=== PATIENT | female | born 1990 | race Caucasian/White ===

== ENCOUNTER 2017-06-21 17:54 | Emergency (ER) | payer MEDICAID ==
[~2017-06-21] VITALS: Ht 157.5 cm; Wt 87.5 kg
[~2017-06-21 17:54] MED LIST: AMOX1TAB64 PO; DOXY100T PO; HYDR2TAB29 PO; IBUP200T48 PO
[2017-06-21 17:56] VITALS: BP 114/74
== END 2017-06-21 18:33 | disposition home or self-care (01) ==
LOC: ED 18:27
DX: L03.012 Cellulitis of left finger (principal); G89.11 Acute pain due to trauma
CPT/HCPCS: 11740

== ENCOUNTER 2018-01-08 00:12 | Emergency (ER) | payer MEDICAID ==
[~2018-01-08] VITALS: Ht 170.2 cm; Wt 91.0 kg
[~2018-01-08 00:12] MED LIST changes: -IBUP200T48 PO; +IBUP200T49 PO
[2018-01-08] MEDS ORDERED: IBUPROFEN 200 MG TABLET ONE (00:45)
[2018-01-08] MEDS ORDERED: IBUPROFEN 200 MG TABLET PO ONE (01:00)
[2018-01-08 01:39] VITALS: BP 134/74
== END 2018-01-08 01:41 | disposition home or self-care (01) ==
LOC: ED 01:21
DX: K04.7 Periapical abscess without sinus (principal); F17.210 Nicotine dependence, cigarettes, uncomplicated
CPT/HCPCS: 99283

== ENCOUNTER 2018-11-14 13:07 | Emergency (ER) | payer MEDICAID ==
[~2018-11-14] VITALS: Ht 170.2 cm; Wt 79.5 kg
[2018-11-14 14:00] LABS: ALBUMIN 4.1 g/dL (3.4-5.0); ANION GAP 8 mmol/L (5-15); CALCIUM 9.1 mg/dL (8.5-10.1); CHLORIDE 108 mmol/L (98-107); CREATININE 0.71 mg/dL (0.55-1.02)
--- NOTE | 2018-11-14 15:12 | NUR ---
DR LIN AT BEDSIDE TO EVAL PT
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
[2018-11-14 16:02] VITALS: BP 111/63
[2018-11-14 16:05] LABS: BASOPHILS # (AUTO) 0.03 x10^3/uL (0-0.1); BASOPHILS % (AUTO) 0 % (0-1); EOSINOPHILS # (AUTO) 0.32 x10^3/uL (0-0.4); EOSINOPHILS % (AUTO) 3 % (1-7); LYMPHOCYTES # (AUTO) 2.88 x10^3/uL (1-3.4); LYMPHOCYTES % (AUTO) 29 % (22-44); MD NO; MEAN CORPUSCULAR HEMOGLOBIN 28.9 pg (27.0-34.8); MEAN CORPUSCULAR HGB CONC 33.4 g/dL (32.4-35.8); MEAN CORPUSCULAR VOLUME 86.6 fL (80-100); MEAN PLATELET VOLUME 9.9 fL (7.4-10.4); MONOCYTES # (AUTO) 0.22 x10^3/uL (0.2-0.8); MONOCYTES % (AUTO) 2 % (2-9); NEUTROPHILS # (AUTO) 6.41 x10^3/uL (1.8-6.8); NEUTROPHILS % (AUTO) 65 % (42-75); PLATELET COUNT 281 x10^3/uL (130-400); RED BLOOD COUNT 5.29 x10^6/uL (3.82-5.3); RED CELL DISTRIBUTION WIDTH 13.4 % (9.6-15.2)
[2018-11-14 16:36] LABS: HCG UR SG 1.018 (1.003-1.030); MICROSCOPIC AUTO
[2018-11-14 16:41] LABS: CULTURE INDICATED? YES
--- NOTE | 2018-11-14 17:43 | NUR ---
PT DRESSED, NO ACUTE DISTRESS NOTED. NO IV TO DC. REVIEWED DC INSTRUCTIONS WITH PT, UNDERSTANDING VERBALIZED. PT LEFT AMB, GAIT STEADY.
== END 2018-11-14 17:46 | disposition home or self-care (01) ==
LOC: ED 16:18
DX: F41.1 Generalized anxiety disorder (principal); N30.00 Acute cystitis without hematuria
CPT/HCPCS: 36415; 80048; 81001; 81025; 82040; 84702; 85025; 87077; 87086; 87186; 99283; Q0177